=== PATIENT | male | born 1960 | race Caucasian/White ===

== ENCOUNTER 2018-08-20 06:18 | Day surgery (SDC) | payer MEDICARE ==
[2018-08-20] MEDS ORDERED: ceFAZolin 2 GM/50 ML 2 GM/50 ML BAG IV ONE (06:28)
[2018-08-20] MEDS ORDERED: LACTATED RINGERS 1,000 ML IV ONE (06:43)
--- NOTE | 2018-08-20 06:53 | ANESTHESIA ---
Pre-Anesthesia VS, & Labs - Diagnosis umbilical hernia - Procedure umbilical hernia repair Vital Signs: Temp Pulse Resp BP Pulse Ox 36.6 C 69 18 136/84 H 96 08/20/18 06:44 08/20/18 06:44 08/20/18 06:44 08/20/18 06:44 08/20/18 06:44 Height 5 ft 10 in Weight (kg) 93.5 kg - NPO >8 hours Last Fluid Intake: sips with meds 0500 Home Medications and Allergies Home Medications: Ambulatory Orders Losartan Potassium 100 mg PO DAILY 08/17/18 amLODIPine [Norvasc] 10 mg PO DAILY 08/17/18 Losartan Potassium 100 mg PO DAILY 08/17/18 amLODIPine [Norvasc] 10 mg PO DAILY 08/17/18 Allergies/Adverse Reactions: Allergies Allergy/AdvReac Type Severity Reaction Status Date / Time No Known Drug Allergies Allergy Verified 08/17/18 13:25 Anes History & Medical History - Anesthetic History Anesthesia Complications: reports: No previous complications Family history of Anesthesia Complications: Denies Family history of Malignant Hyperthermia: Denies - Medical History Cardiovascular: reports: Congestive heart failure, Hypertension Pulmonary: reports: None Gastrointestinal: reports: GERD, Ulcers, Other Urinary: reports: Benign prostate hypertrophy, Other Musculoskeletal: reports: Other Endocrine/Autoimmune: reports: None Skin: reports: None - Surgical History General: Colonoscopy Urologic: Prostatic surgery Orthopedic: Spine surgery Exam General: Alert, Oriented x3 Dental: WNL Mouth Openin Fingerbreadth Neck Mobility: Normal Mallampati classification: II Thyromental Distance: 4-6 cm Respiratory: Lungs clear, Normal breath sounds Cardiovascular: Regular rate Neurological: Normal speech Mental/Cognitive Status: Alert/Oriented X3 Cognitive Status: Within normal limits Plan Anesthesia Type: MAC Consent for Procedure(s) Verified and Reviewed: Yes Code Status: Attempt Resuscitation ASA classification: 2-Mild systemic disease Is this case an emergency?: No
[2018-08-20] MEDS ORDERED: LIDOCAINE 1%-EPI 1:100000 30 ML MDV ONE (07:13)
[2018-08-20] MEDS ORDERED: BUPIVACAINE 0.5% PF 30 ML VIAL ONE (07:13)
[2018-08-20] MEDS ORDERED: ceFAZolin 1 GM VIAL ONE (07:25)
[2018-08-20] MEDS ORDERED: ACETAMINOPHEN 325 MG TABLET PO PRN (08:38)
[2018-08-20] MEDS ORDERED: ONDANSETRON 4 MG/2 ML VIAL IVP PRN (08:38)
[2018-08-20] MEDS ORDERED: IBUPROFEN 600 MG TABLET PO PRN (08:38)
[2018-08-20] MEDS ORDERED: oxyCODONE 5 MG TABLET PO PRN (08:38)
[2018-08-20] MEDS ORDERED: KETOROLAC 15 MG/ML VIAL ONE (08:47)
[2018-08-20] MEDS ORDERED: ACETAMINOPHEN 1,000 MG/100 ML 100 ML IV ONE (08:51)
[2018-08-20] MEDS ORDERED: oxyCODONE 5 MG TABLET ONE (09:24)
[2018-08-20 10:03] VITALS: BP 125/85
--- NOTE | 2018-08-20 13:07 | OPERATIVE REPORT ---
DATE OF SERVICE: 08/20/2018 Physician: Rich Rosen MD PREOPERATIVE DIAGNOSIS: Symptomatic umbilical hernia. POSTOPERATIVE DIAGNOSIS: Symptomatic incarcerated umbilical hernia. PROCEDURE PERFORMED: Open repair of same. SURGEON: Rich Rosen MD ANESTHESIOLOGIST: Venkata Mccall MD ANESTHESIA: Local plus monitored anesthesia care. ESTIMATED BLOOD LOSS: 5 mL BLOOD REPLACED: None. COMPLICATIONS: None. FINDINGS: A 1 cm umbilical fascial defect was present. The hernia sac was associated with the defec t measuring 4 cm in diameter with omentum that was viable, incarcerated within the hernia sac. INDICATIONS: Hiren Lopez is a 57-year-old man with a one year history of progressively enlarging an d increasingly painful umbilical bulge. On examination there was found to be a partially reducible u mbilical mass consistent with an umbilical hernia. He was advised to undergo open repair with possib le mesh reconstruction. TECHNIQUE: After informed consent, the patient was taken to the operating room where he was sedated and monitored. Preoperative preparation of the application of sequential calf compression boots, adm inistration of 2 grams cefazolin intravenously within an hour of the incision. His abdomen was clipp ed and prepared with iodoform solution, following which, a periumbilical block was instituted using a 50:50 combination of 1% lidocaine plain and 0.5% Marcaine with epinephrine, a total of 27 mL of the mixture was used. The abdomen was re-prepared with ChloraPrep solution and draped in the usual steri le fashion. Curvilinear transverse supraumbilical incision was made approximately 4 cm in length and carried down through subcutaneous tissues. Hemostasis achieved with electrocautery and 2-0 Vicryl t ie. Incision was carried down into subcutaneous tissue. The umbilical dermis was dissected off the underlying hernia sac. The hernia sac was carefully dissected free from surrounding soft tissues unt il the anterior fascia was exposed circumferentially around the neck of the hernia sac. The hernia s ac was opened. Findings were as noted above. The omentum could not be reduced and therefore it was amputated using 2-0 Vicryl ties for hemostasis. This allowed the remnant to be reduced into the maria r toneal cavity. The hernia sac was excised and discarded using electrocautery. Because the fascial d efect was so small, primary repair was performed using interrupted 0 Ethibond sutures. Three sutures were used to close the fascial defect. After hemostasis was assured, wound closure was accomplished in layers using interrupted 2-0 Vicryl, reapproximating the umbilical dermis to the anterior fascia and to reapproximate the deep subcutaneous tissues. 3-0 Vicryl was used to reapproximate superficial subcutaneous tissues and 4-0 Monocryl for subcuticular skin closure, followed by Dermabond completed wound closure. The procedure was terminated and the patient transferred out of the operating room i n satisfactory condition. Sponge and needle counts were correct x2. No drains were used. cc: Hu Yanez DO TD: 08/20/2018 08:54
== END 2018-08-20 06:19 | disposition home or self-care (01) ==
LOC: SDS 06:18
PROVIDERS: ATTEND Internal Medicine Gastroenterology
PROC: 0WQF0ZZ Repair Abdominal Wall, Open Approach (ICD-10-PCS; principal; 2018-08-20 07:30)
DX: K42.9 Umbilical hernia without obstruction or gangrene (principal); I13.0 Hypertensive heart and chronic kidney disease with heart failure and stage 1 through stage 4 chronic kidney disease, or unspecified chronic kidney disease; N18.3 Chronic kidney disease, stage 3 (moderate); I50.9 Heart failure, unspecified; D86.0 Sarcoidosis of lung; K21.9 Gastro-esophageal reflux disease without esophagitis; E66.9 Obesity, unspecified; Z68.34 Body mass index [BMI] 34.0-34.9, adult; Z87.11 Personal history of peptic ulcer disease; Z87.891 Personal history of nicotine dependence
CPT/HCPCS: 49587; A9270; J0131; J0690; J7120